=== PATIENT | female | born 1940 | race Caucasian/White ===

== ENCOUNTER 2020-11-15 17:41 | Emergency (ER) | payer MEDICARE ==
[~2020-11-15] VITALS: Ht 167.6 cm; Wt 63.5 kg
[2020-11-15] MEDS ORDERED: ONDA4 PO (18:40)
[2020-11-15] MEDS ORDERED: BENZ100A PO (18:40)
== END 2020-11-15 19:43 | disposition home or self-care (01) ==
LOC: ER 17:41
DX: U07.1 COVID-19 (principal); I10 Essential (primary) hypertension
CPT/HCPCS: 99283-25; M0243; Q0243